=== PATIENT | female | born 1955 | race Caucasian/White ===

== ENCOUNTER 2016-11-14 18:30 | Emergency (ER) | payer BC | END 2016-11-14 21:13 | disposition home or self-care (01) | LOC: ER 18:30 | DX: R03.0 Elevated blood-pressure reading, without diagnosis of hypertension (principal); R05 Cough; F17.210 Nicotine dependence, cigarettes, uncomplicated; Z79.899 Other long term (current) drug therapy | CPT/HCPCS: 36415 ==